=== PATIENT | female | born 1995 | race African-American/Black ===

== ENCOUNTER 2017-02-10 09:46 | Emergency (ER) | payer OTHER | END 2017-02-10 11:51 | disposition home or self-care (01) | LOC: ER 09:46 | DX: J45.901 Unspecified asthma with (acute) exacerbation (principal); Z91.09 Other allergy status, other than to drugs and biological substances; Z79.899 Other long term (current) drug therapy | CPT/HCPCS: 96374; 96375; J1200; J2060 ==